=== PATIENT | male | born 1995 | race Caucasian/White ===

== ENCOUNTER 2022-07-13 17:02 | Emergency (ER) | payer BC, SELFPAY ==
--- NOTE | 2022-07-13 17:25 | XR_ITS ---
PROCEDURE INFORMATION: Exam: XR Left Ankle Exam date and time: 07/13/2022 5:27 PM Age: 27 years old Clinical indication: Ankle; Left; Patient HX: Pain @ lateral malleolus x days w swelling, nkt TECHNIQUE: Imaging protocol: Radiologic exam of the left ankle. Views: 3 or more views. COMPARISON: CR Foot L 13/07/2022 17:24 FINDINGS: Bones/joints: Calcaneus enthesophytes. No acute fracture or dislocation. Soft tissues: [id number] soft tissue swelling around the ankle. IMPRESSION: No acute fracture or dislocation.
--- NOTE | 2022-07-13 17:25 | XR_ITS ---
PROCEDURE INFORMATION: Exam: XR Left Foot Exam date and time: 07/13/2022 5:24 PM Age: 27 years old Clinical indication: Ankle; Left; Patient HX: Pain @ lateral malleolus x days w swelling, nkt TECHNIQUE: Imaging protocol: Radiologic exam of the left foot. Views: 3 or more views. COMPARISON: No relevant prior studies available. FINDINGS: Bones/joints: No acute fracture or dislocation. Soft tissues: Normal. IMPRESSION: No acute fracture or dislocation.
[2022-07-13 17:26] VITALS: BP 178/105; PULSE 73; RESP 18; TEMP 36.8; O2SAT 95; BMI 45.0
--- NOTE | 2022-07-13 18:33 | EXP.UTC ---
Discharge Plan Disposition Patient Disposition: Home, Self-Care Condition: Good Prescriptions Prescriptions: New ibuprofen 800 mg tablet 800 mg PO TID PRN (Reason: pain) Qty: 30 0RF Referrals Follow up/Referrals: Provider,Referral, MD [Primary Care Provider] - See instructions Clinical Impressions Clinical Impression: Left ankle effusion Discharge ED [place]ible[place] [facility] [place] General Stated complaint: pain left ankle (no accidnet Mode of Arrival: Ambulatory Source of Information: Patient Limitations: No Limitations Time Seen by Provider: 07/13/22 17:29 Description of Symptoms (Recalled from Triage Doc. by RN): pt reports L ankle pain, states it is sore and he can barely put weight on it, denies any injury HEENT Symptoms (Recalled from RN notes): No Resp Symptoms (Recalled from RN notes): No Skin Symptoms (Recalled from RN notes): No MS Symptoms (Recalled from RN notes): Yes Functional Status (Recalled from RN notes): wnl History of Present Illness Provider Complaint: Pt relates that while on vacation in [place] he got out of the car and immediately felt pain in his left ankle. He states that he does not remember injuring his ankle but notes that it is hard to walk on. He denies any history of gout. No redness at the site. Related Data Previous Rx's Medication Instructions Recorded ibuprofen 800 mg tablet 800 mg PO TID PRN pain #30 tabs 07/13/22 Allergies Allergy/AdvReac Type Severity Reaction Status Date / Time No Known Allergies Allergy Verified 09/18/21 14:03 Worker's Comp Is this a Worker's Comp case?: No Is this an [facility] Worker's Comp?: No Is this a [place] Worker's Comp?: No [facility] Disclaimer: The information contained in this section may have been updated after the patient was seen, as this information can be updated by other users. Social History Smoking Status: Current every day smoker alcohol intake: never current occupational status: other Travel in the last 8 weeks: None ROS Obtained: Yes All systems reviewed & no additional complaints except as documented Constitutional Constitutional: Reports system reviewed and no additional complaints, except as documented Eyes Eyes: Reports system reviewed and no additional complaints, except as documented ENT Ears, Nose, Mouth, and Throat: Reports system reviewed and no additional complaints, except as documented Cardiovascular Cardiovascular: Reports system reviewed and no additional complaints, except as documented Respiratory Respiratory: Reports system reviewed and no additional complaints, except as documented Gastrointestinal Gastrointestingal: Reports system reviewed and no additional complaints, except as documented Genitourinary Male Genitourinary: Reports system reviewed and no additional complaints, except as documented Musculoskeletal Musculoskeletal: Reports system reviewed and no additional complaints, except as documented, Reports abnormal gait, Reports arthralgias and Reports joint swelling Integumentary/Breasts Skin/Breast: Reports system reviewed and no additional complaints, except as documented Neurologic Neurologic: Reports system reviewed and no additional complaints, except as documented and Reports abnormal gait Endocrine Endocrine: Reports system reviewed and no additional complaints, except as documented Hematologic/Lymphatic Henatologic/Lymphatic: Reports system reviewed and no additional complaints, except as documented Allergic/Immunologic Allergic/Immunologic: Reports system reviewed and no additional complaints, except as documented Physical Exam General General appearance: alert and in no apparent distress Head Head exam: atraumatic and normocephalic Eye Eye exam: Present normal appearance ENT ENT exam: Present normal exam Neck Neck exam: Present normal inspection Chest Chest inspection: Present normal inspection Respiratory Respiratory exam: Present normal lung sounds bilater
[2022-07-13 18:49] VITALS: BP 160/103; PULSE 73; RESP 18; TEMP 36.7; O2SAT 96
== END 2022-07-13 19:00 | disposition home or self-care (01) ==
PROVIDERS: Emergency Provider Nurse Practitioner Family
DX: M25.472 Effusion, left ankle (principal); F17.210 Nicotine dependence, cigarettes, uncomplicated; V48.4XXA Person boarding or alighting a car injured in noncollision transport accident, initial encounter
CPT/HCPCS: 73610; 73630; 99204; 99212; G0463

== ENCOUNTER 2024-10-28 12:37 | Day surgery (SDC) | payer BC, SELFPAY ==
[2024-10-22 09:31] VITALS: BMI 43.7
--- NOTE | 2024-10-27 10:00 | P.HP_ITS ---
History of Present Illness *Admission Date: 10/28/24 *History of present illness: Mr. Sykes is a 29-year-old gentleman who is here for diagnostic EGD secondary to globus sensation and vomiting. The examination is deemed medically necessary for diagnostic EGD. The patient has been seen, interviewed and examined prior to the procedure by both myself and the anesthesia provider. [facility] Disclaimer: The information contained in this section may have been updated after the patient was seen, as this information can be updated by other users. Medical History (Updated 10/28/24 @ 13:59 by Steven Deleon II, MD) Hypertension Surgical History (Updated 10/28/24 @ 13:06 by Omero Morris RN) No history of previous surgery Family History Father Family history of hypertension Mother Family history of diabetes mellitus type II Social History (Updated 10/28/24 @ 13:21 by Bobby Moore CRNA) Smoking Status: Never smoker alcohol intake: never substance use type: denies use current occupational status: other Travel in the last 8 weeks?: None Have you lived/traveled outside US in past 30 days?: No Contact w/someone who lives/traveled outside US past 30 days?: No Exposure to someone with infectious disease in past 14 days?: No Do you have a fever (greater than 100.4 F or 38 C)?: No Have you tested positive for COVID-19?: No Exposed to someone with COVID-19 in past 14 days?: No Do you have a sore throat?: No Do you have a cough?: No Do you have any weakness?: No Do you have any diarrhea?: No Are you experiencing any unusual bleeding?: No Do you have any muscle aches/pain?: No Do you have any abdominal pain?: No Are you experiencing loss of taste or smell?: No Other Medical History Have you received the Flu Vaccine for this season: No Have you received the Pneumonia Vaccine: No Review of Systems Review of Systems Review of systems (narrative): Negative *Cardiovascular Comments: Negative *Gastrointestinal Comments: Negative *Genitourinary Comments: Negative *Musculoskeletal Comments: Negative *Neurologic Comments: Negative Meds Home Medications and Allergies Home Medications ?Medication ?Instructions ?Recorded ?Confirmed ?Type lisinopril 20 mg tablet 20 mg PO DAILY 10/22/2409/25 History New Prescriptions to Start Prescriptions: Allergies Allergy/AdvReac Type Severity Reaction Status Date / Time No Known Allergies Allergy Verified 10/28/24 13:06 Exam *Routine HEENT Exam Head: Present normocephalic Eye: Present EOMI and PERRL ENT: Present mucous membranes moist *Routine Neck Exam Neck: Present supple *Routine Respiratory Exam Respiratory: Present CTA bilaterally *Routine Cardiovascular Exam Cardiovascular: Present RRR *Routine Abdominal Exam Abdominal: Present soft and normoactive bowel sounds; Absent tenderness *Routine Rectal Exam Rectal:: deferred *Routine Genitalia Exam Genitalia:: deferred *Routine Extremities Exam Extremities: Absent cyanosis, clubbing or edema *Routine Skin Exam Skin: Present warm; Absent rash *Routine Neurological Exam Neurological: Present alert and oriented X3 Assessment and Plan *Assessment and plan (1) Globus sensation: Status: Acute Category: Medical Code(s): R09.A2 - Foreign body sensation, throat (2) Vomiting: Status: Acute Category: Medical Code(s): R11.10 - Vomiting, unspecified Plan A/P: 1. Dysphagia, nausea and vomiting with globus sensation is the preprocedural diagnosis. The patient will be anesthetized/sedated using MAC sedation. The patient has been seen and examined. Cardiac and lung assessment prior to the examination is stable. Proceed with planned diagnostic EGD.
[2024-10-28] MEDS: LACTATED RINGERS 1000ML 1,000 ML 50 ML IV (13:02)
[2024-10-28 13:07] VITALS: BP 119/53; PULSE 50; RESP 18; TEMP 36.1; O2SAT 100
--- NOTE | 2024-10-28 13:20 | P.PNANES_ITS ---
[facility] Disclaimer: The information contained in this section may have been updated after the patient was seen, as this information can be updated by other users. Medical History Hypertension Surgical History (Updated 10/28/24 @ 13:06 by Omero Morris RN) No history of previous surgery Family History Father Family history of hypertension Mother Family history of diabetes mellitus type II Social History Smoking Status: Never smoker alcohol intake: never substance use type: denies use current occupational status: other Travel in the last 8 weeks?: None [facility] Anesthesia Checklist Patient Identification Patient Identification: Arm Band Structural Data Admitted From: Home Planned Operative Procedure/s: EGD Consent for Planned Operative Procedure(s) Verified: Yes Verified Documents: Surgical Consent and History and Physical NPO Status Verified Time NPO: 00:00 Additional verifications Anesthesia Reactions: No Airway Assessment Mallampati Score:: Class II C-Spine Mobility Assessed: Yes TMJ Mobility Assessed: Yes Dentition: Good Dentition Neurological Assessment Level of Consciousness: Awake, Alert and Appropriate Anesthesia Plan Anesthesia Risk discussed: Yes Anesthesia Plan: Verified ASA Class: III Anesthesia Type: MAC
--- NOTE | 2024-10-28 13:59 | HMH.PROCNOTE ---
[facility] Procedure Note Date: 10/28/24 Time: 14:05 Procedure Note:: Upper Endoscopy Procedure Report: Esophagogastroduodenoscopy with cold biopsies Endoscopost: Steven Deleon II, MD Referring Physician: Juan J Gibson MD Date of Procedure: October 28, 2024 Equipment: Olympus GIF-1100 standard upper endoscope Sedation: MAC sedation Indications: Mr. Sykes is a 29-year-old gentleman who states that he began having postprandial vomiting (without nausea) about 3 months ago. He would subsequently have mucus buildup and globus sensation in his throat and then have gagging. He reports no bloating, gassiness or belching. He reports no dysphagia, early satiety or abdominal pain. He reports regular bowel function. Since going on a keto diet, he has not had symptoms in about 3 weeks. Procedure: Prior to the procedure, a history and physical exam was performed, and patient's medications and allergies were reviewed. The risks, benefits and alternatives of the sedation and procedure were discussed with the patient. All questions were answered and informed consent was obtained. The patient was brought to the procedure room. Patient identification and proposed procedure were verified by the physician and the nurse. The patient was placed in a left lateral decubitus position and the scope was passed under direct vision. Throughout the procedure, the patient's blood pressure, pulse, and oxygen saturations were monitored continuously. The upper GI endoscopy was accomplished without difficulty. The patient tolerated the procedure well. Findings: The scope was passed directly into the upper esophagus and advanced to the third portion of the duodenum. The post bulbar duodenum, ampulla and duodenal bulb were normal with normal mucosa and conniventes. A cold biopsy was taken from the second portion of the duodenum for the disaccharidase assay. The scope was withdrawn through a normal duodenal bulb and pylorus into the stomach. There was minimal linear reactive gastropathy of the antrum. The body and fundus of the stomach were normal. Upon retroflexion there was a small sliding 1 to 2 cm hiatal hernia. The scope was then withdrawn into the esophagus. There was mild grade A reflux esophagitis and a single tongue of salmon-colored mucosa that was biopsied to rule out intestinal metaplasia. There were some tertiary contractions and evidence of mild esophageal dysmotility. The remainder of the esophageal mucosa was normal. Impression: 1. Grade A reflux esophagitis with mild esophageal dysmotility and small 1 to 2 cm hiatal hernia 2. Minimal antral reactive gastropathy Plan: I will follow-up the biopsies and discuss the findings with the patient and family. I do feel that he has gas driven reflux with associated esophageal dysmotility and globus sensation. We will discuss treatment options.
[2024-10-28 14:08] VITALS: BP 134/66; PULSE 80; RESP 18; TEMP 36.1; O2SAT 94
[2024-10-28 14:18] VITALS: BP 146/70; PULSE 62; RESP 18; TEMP 36.1; O2SAT 92
[2024-10-28 14:28] VITALS: BP 125/67; PULSE 62; RESP 18; TEMP 36.1; O2SAT 95
[2024-10-28 14:38] VITALS: BP 125/61; PULSE 60; RESP 18; TEMP 36.1; O2SAT 96
[2024-11-02 16:21] LABS: Interpretation Notes (.); Lactase 15.84 (>/= 14.0); Maltase 97.58 (>/= 110.0); Palatinase 6.39 (>/= 8.5); Reference Notes (.); Sucrase 19.92 (>/= 25.0)
== END 2024-10-28 14:40 | disposition home or self-care (01) ==
PROVIDERS: PCP Family Medicine; Visit Provider Internal Medicine Gastroenterology
PROC: 0DJ08ZZ Inspection of Upper Intestinal Tract, Via Natural or Artificial Opening Endoscopic (ICD-10-PCS; CPT 43239; principal; 2024-10-28 15:00)
DX: K21.00 Gastro-esophageal reflux disease with esophagitis, without bleeding (principal); K44.9 Diaphragmatic hernia without obstruction or gangrene; K22.4 Dyskinesia of esophagus; K31.9 Disease of stomach and duodenum, unspecified
CPT/HCPCS: 43239; 82657; J2003; J2704; J7120